=== PATIENT | male | born 1960 | race Caucasian/White ===

== ENCOUNTER 2025-04-19 02:38 | Emergency (ER) | payer MEDICAID, OTHER ==
[~2025-04-19] VITALS: Ht 167.6 cm; Wt 68.0 kg
[2025-04-19 02:44] VITALS: O2SAT 96
[2025-04-19 03:02] VITALS: TEMP 36.8
[2025-04-19] MEDS: MORPHINE SULFATE 4 MG/ML INJ (FOR IV/IM USE) IV ONE ×2 (03:26→06:23)
[2025-04-19] MEDS: ONDANSETRON HCL 4MG/2ML INJ IV ONE (03:27)
[2025-04-19] MEDS: MAGNESIUM/ALUMINUM HYDROXIDE/SIMETHICONE 30ML UDC PO ONE (03:27)
[2025-04-19 03:33] LABS: HEMATOCRIT. 28.5 % (42.0-52.0); HEMOGLOBIN. 9.8 g/dL (14.0-18.0); MEAN PLATELET VOLUME 8.1 fl (7.4-10.4); PLATELET 155 x1000/uL (130-400); RED BLOOD CELL COUNT 3.01 mill/uL (4.7-6.1); RED CELL DISTRIBUTION WIDTH 14.9 % (11.6-14.6)
[2025-04-19 03:48] LABS: CREATININE 0.8 mg/dL (0.6-1.3)
[2025-04-19 03:49] LABS: UREA NITROGEN BLOOD 18 mg/dL (9-23)
[2025-04-19 03:50] LABS: ASPARTATE AMINOTRANSFERASE 16 IU/L (<34); INR 1.0
[2025-04-19 03:51] LABS: BILIRUBIN DIRECT 0.1 mg/dL (<=3.0); BILIRUBIN TOTAL 0.4 mg/dL (0.1-1.0); PROTEIN TOTAL 6.2 g/dL (6.0-8.3)
[2025-04-19] MEDS ORDERED: IOHEXOL-300 100 ML BOTTLE ONE (05:42)
[2025-04-19 05:43] LABS: BAND% 2.0 % (1.0-6.0); EOSINOPHILS % MANUAL 2.0 % (0.0-5.0); LYMPHOCYTES % MANUAL 8.0 % (20.0-50.0); MONOCYTES % MANUAL 6.0 % (2.0-8.0); NEUTROPHILS % MANUAL 82.0 % (45.0-75.0)
[2025-04-19 05:44] LABS: PLATELET ESTIMATE NORMAL
[2025-04-19 06:26] VITALS: BP 129/58; PULSE 49; RESP 11; O2SAT 99
== END 2025-04-19 06:51 | disposition home or self-care (01) ==
LOC: ER 02:50 → CMPBEDREQ 09:56
DX: R10.13 Epigastric pain (principal); R04.2 Hemoptysis; I10 Essential (primary) hypertension; I25.10 Atherosclerotic heart disease of native coronary artery without angina pectoris; K56.609 Unspecified intestinal obstruction, unspecified as to partial versus complete obstruction; M54.2 Cervicalgia
CPT/HCPCS: 80076; 80048; 83690; 85025; 85610; 85730; 36415; 71045; 70491; 74176; 93005; 96374; 96375; 96376; 99285; Q9967; J2405; J2270; Z7610